=== PATIENT | female | born 1945 | race Hispanic/Latino ===

== ENCOUNTER → 2018-10-24 | Day surgery (SDC) | payer MEDICARE ==
[2018-10-22 11:36] LABS: HEMATOCRIT 40.7 % (34.2-44.1); HEMOGLOBIN 13.4 g/dL (12.0-16.0); LYMPHOCYTES # (AUTO) 1.7 (1.0-3.2); LYMPHOCYTES % 26.1 % (18.0-39.1); MEAN CORPUSCULAR HEMOGLOBIN 29.2 pg (28-32); MEAN CORPUSCULAR HGB CONC 32.9 g/dL (31-35); MEAN CORPUSCULAR VOLUME 88.7 fL (81-99); MONOCYTES # (AUTO) 0.5 (0.2-0.8); MONOCYTES % 8.2 % (4.4-11.3); NEUTROPHILS # (AUTO) 4.2 (2.1-6.9); NEUTROPHILS % 65.2 % (38.7-80.0); PLATELET COUNT 292 x10e3/uL (140-360); RED BLOOD COUNT 4.59 x10e6/uL (3.6-5.1); RED CELL DISTRIBUTION WIDTH 13.1 % (11.7-14.4)
[~2018-10-24] MED LIST: FENTANYL CITRATE/PF 100MCG/2 ML INJ ONE; LISINOPRIL10 MG PO; MIDAZOLAM HCL 2 MG/2 ML VIAL ONE; PROPOFOL IV EMULSION 10 MG/ML 50 ML VIAL ONE; ULTRAM50 MG PO
--- OUTSIDE RECORDS SUMMARY | 2018-10-24 10:21 | XMS REPORT | CCD ---
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 Name Role Phone Rick Lane RP Allergies, Adverse Reactions, Alerts Substance Reaction Status NKDA Active Problem List Condition Effective Dates Status Asthma1 Active Hypertension2 Active 1inhaler prn; took inhaler last weekend 2takes meds Medications Medication Instructions Start Date End Date Status naloxone 0.04 mg, 0.1 mL, Route: IVP, Drug 10/15/2012 10/15/2012 Discontinued form: INJ, Q2MIN, Dosing Weight 62.415, kg, PRN Narcotic Reversal, Start date: 10/15/12 14:49:00, Duration: 8 doses or times, Stop date: Limited # of times flumazenil 0.2 mg, 2 mL, Route: IVP, Drug 10/15/2012 10/15/2012 Discontinued form: INJ, PRN, Dosing Weight 62.415, kg, PRN Benzodiazepine Reversal, Initial dose, Start date: 10/15/12 14:49:00, Duration: 30 day, Stop date: 11/14/12 14:48:00 ketorolac 30 mg, 1 mL, Route: IVP, Drug form: 10/15/2012 10/15/2012 Ordered INJ, ONCE, Dosing Weight 62.415, kg, Start date: 10/15/12 14:49:00, Duration: 1 doses or times, Stop date: 10/15/12 14:49:00 morphine Sulfate 2 mg, 1 mL, Route: IVP, Drug form: 10/15/2012 10/15/2012 Discontinued INJ, Q5Min, Dosing Weight 62.415, kg, PRN Pain Score 4-6, Start date: 10/15/12 14:49:00, Duration: 5 doses or times, Stop date: Limited # of times ondansetron 4 mg, 2 mL, Route: IVP, Drug form: 10/15/2012 10/15/2012 Discontinued INJ, ONCE, Dosing Weight 62.415, kg, PRN Nausea & Vomiting, Start date: 10/15/12 14:49:00 BD Posiflush SF 15 mL, Route: IVP, Drug Form: INJ, 10/15/2012 10/15/2012 Discontinued PRN, PRN Line Flush, Start date: 10/15/12 6:00:00, Duration: 30 day, Stop date: 11/14/12 5:59:00 cefazolin + Sodium 1 gm, Route: IVPB, ONCALL, Start 10/15/2012 10/15/2012 Discontinued Chloride 0.9% IV 100 date: 10/15/12 6:00:00, Duration: 1 mL doses or times, Stop date: 10/15/12 23:59:00 Lactated Ringers 1,000 mL, Rate: 100 ml/hr, Infuse 10/15/2012 10/15/2012 Discontinued Injection IV 1,000 over: 10 hr, Route: IV, Dosing mL Weight 62.415 kg, Total Volume: 1,000, Start date: 10/15/12 6:00:00, Duration: 30 day, Stop date: 11/14/12 5:59:00 Combivent inhalation 2 puff, INHALER, QID, 14 gm, 10/10/2012 Ordered aerosol with adapter Substitution Allowed, Maintenance Lactated Ringers 1,000 mL, Rate: 25 ml/hr, Infuse 10/15/2012 10/15/2012 Discontinued Injection IV 1,000 over: 40 hr, Route: IV, Dosing mL Weight 62.415 kg, Total Volume: 1,000, Start date: 10/15/12 11:30:00, Duration: 30 day, Stop date: 11/14/12 11:29:00 enalapril 10 mg oral 10 mg, 1 tab, PO, Daily, 30 tab, 10/10/2012 Ordered tablet Substitution Allowed, TAB Vital Signs Most recent to oldest [Reference Range]: 1 2 3 Height 157.48 cm (10/10/2012 14:27:00) Systolic Blood Pressure [90-140 mmHg] 150 mmHg *HI* (10/15/2012 16:20:00) 152 mmHg *HI* (10/15/2012 15:40:00) 157 mmHg *HI* (10/15/2012 15:25:00) Diastolic Blood Pressure [60-90 mmHg] 62 mmHg (10/15/2012 16:20:00) 60 mmHg (10/15/2012 15:40:00) 65 mmHg (10/15/2012 15:25:00) Respiratory Rate [14-20 BRMIN] 18 BRMIN (10/15/2012 16:20:00) 16 BRMIN (10/15/2012 15:40:00) 16 BRMIN (10/15/2012 15:25:00) Peripheral Pulse Rate [60-100 bpm] 61 bpm (10/15/2012 16:20:00) 62 bpm (10/15/2012 15:40:00) 61 bpm (10/15/2012 15:25:00) Weight 62.415 kg (10/10/2012 14:27:00) Procedures Procedures Date Related Diagnosis Cataract surgery 02/19/2005 00:00:00
--- OUTSIDE RECORDS SUMMARY | 2018-10-24 10:21 | XMS REPORT | Summary of Care ---
Author Author [facility] Organization [facility] Address Unknown Phone Unavailable Encounter HQ Jared(FIN) [id number] Date(s): 06/16/18 - 06/17/[address] [facility] [address] [place] [address]- Encounter Diagnosis UTI (urinary tract infection) (Discharge Diagnosis) - 06/17/18 Discharge Disposition: Home or Self Care Attending Physician: Allen Balderas MD Vital Signs 1 2 3 Most recent to oldest [Reference Range]: 152.4 cm (06/16/18 9:10 PM) Height 98.2 DegF (06/17/18 12:43 AM) 98.8 DegF (06/16/18 9:10 PM) Temperature Oral [96.4-99.1 DegF] 161/70 mmHg *HI* (06/17/18 12:43 AM) 183/70 mmHg *HI* (06/17/18 12:13 AM) 186/74 mmHg *HI* (06/16/18 11:36 PM) Blood Pressure [90-140/60-90 mmHg] 18 BRMIN (06/17/18 12:43 AM) 18 BRMIN (06/17/18 12:13 AM) 16 BRMIN (06/16/18 11:36 PM) Respiratory Rate [14-20 BRMIN] 66 bpm (06/16/18 9:10 PM) Peripheral Pulse Rate [60-100 bpm] 56.136 kg (06/16/18 9:10 PM) Weight 24.17 m2 (06/16/18 9:10 PM) Body Mass Index Problem List Condition Effective Dates Status Health Status Informant Asthma(Confirmed)1 Active Thickened Active endometrium(Confirme d) Acid Active reflux(Confirmed) Hypercholesterolemia Active (Confirmed) Hypertension(Confirm Active ed)2 Hypertension(Confirm Active ed) 1inhaler prn; took inhaler last weekend 2takes meds Allergies, Adverse Reactions, Alerts No data available for this section Medications acetaminophen 1,000 mg, 2 tab, Route: PO, Drug form: TAB, ONCE, Dosing Weight 56.364, kg, Prio rity: STAT, Start date: 06/16/18 21:06:00 CDT, Stop date: 06/16/18 21:06:00 CDT Notes: Max acetaminophen 4000 mg/day (4 gm/day). (Same as: Tylenol Extra Streng th) Start Date: 06/16/18 Stop Date: 06/17/18 Status: Completed cefTRIAXone 2 gm, Route: IVPB, Drug form: PDR/INJ, ONCE, Dosing Weight 56.136, kg, Priority: STAT, Start date: 06/16/18 23:03:00 CDT, Stop date: 06/16/18 23:03:00 CDT, ABX Indication: Immunocompromised Host Prophylaxis Start Date: 06/16/18 Stop Date: 06/17/18 Status: Completed cefTRIAXone + sterile water 10 mL 1 gm, Route: IM, ONCE, Dosing Weight 56.364, kg, Priority: STAT, Start date: 21:10:00 CDT, Stop date: 06/16/18 21:10:00 CDT, ABX Indication: Urinary Tr act Infection Notes: (Same As: Rocephin).Use with 100 mL NS and infuse over 30 min MEDICA TION WASTE Product Size: 1000 mgProduct Wasted: ___ mg Start Date: 06/16/18 Stop Date: 06/16/18 Status: Discontinued Cipro 500 mg oral tablet 500 mg=1 tab, PO, Q12H, X 10 day, # 20 tab, 0 Refill(s) Start Date: 06/17/18 Stop Date: 06/27/18 Status: Ordered Results Most recent to 1 oldest [Reference Range]: Neutrophils # 7.0 K/CMM [1.5-8.1 K/CMM] (06/16/18 10:39 PM) Lymphocytes # 2.1 K/CMM [1.0-5.5 K/CMM] (06/16/18 10:39 PM) Monocytes # [0.0-0.8 0.7 K/CMM K/CMM] (06/16/18 10:39 PM) eGFR 91 mL/min/1.73m2 1 *NA* (06/16/18 10:39 PM) A/G Ratio [0.7-1.6] 1.1 (06/16/18 10:39 PM) Albumin Lvl [3.5-5.0 3.6 g/dL g/dL] (06/16/18 10:39 PM) Alk Phos [39-136 76 unit/L unit/L] (06/16/18 10:39 PM) ALT [0-65 unit/L] 29 unit/L (06/16/18 10:39 PM) AGAP [10.0-20.0 7.4 mEq/L mEq/L] *LOW* (06/16/18 10:39 PM) AST [0-37 unit/L] 23 unit/L (06/16/18 10:39 PM) B/C Ratio [6-25] 26 *HI* (06/16/18 10:39 PM) Basophils [0.0-1.0 0.3 % %] (06/16/18 10:39 PM) BUN [7-22 mg/dL] 16 mg/dL (06/16/18 10:39 PM) Calcium Lvl 8.8 mg/dL [8.5-10.5 mg/dL] (06/16/18 10:39 PM) Chloride Lvl [95-109 98 mEq/L mEq/L] (06/16/18 10:39 PM) CO2 [24-32 mEq/L] 32 mEq/L (06/16/18 10:39 PM) Creatinine Lvl 0.62 mg/dL [0.50-1.40 mg/dL] (06/16/18 10:39 PM) Globulin [2.7-4.2 3.3 g/dL g/dL] (06/16/18 10:39 PM) Glucose Lvl [70-99 92 mg/dL mg/dL] (06/16/18 10:39 PM) Hct [36.0-48.0 %] 38.7 % (06/16/18 10:39 PM) Hgb [12.0-16.0 g/dL] 12.8 g/dL (06/16/18 10:39 PM) Potassium Lvl 3.4 mEq/L [3.5-5.1 mEq/L] *LOW* (06/16/18 10:39 PM) Lymphocytes 21.0 % [20.0-40.0 %] (06/16/18 10:39 PM) MCH [27.0-31.0 pg] 29.3 pg (06/16/18 10:39 PM) MCHC [32.0-36.0 33.2 g/dL g/dL] (06/16/18 10:39 PM) MCV [80.0-98.0 fL] 88.3 fL (06/16/18 10:39 PM) Monocytes [2.0-12.0 7.1 % %] (06/16/18 10:39 PM) MPV [7.4-10.4 fL] 9.8 fL (06/16/18 10:39 PM) Sodium Lvl [135-145 134 mEq/L mEq/L] *LOW* (06/16/18 10:39 PM) Platelet [133-450 173 K/CMM K/CMM] (06/16/18 10:39 PM) Segs [45.0-75.0 %] 71.6 % (06/16/18 10:39 PM) Total Protein 6.9 g/dL [6.4-8.4 g/dL] (06/16/18 10:39 PM) RBC [4.20-5.40 4.38 M/CMM M/CMM] (06/16/18 10:39 PM) RDW [11.5-14.5 %] 13.6 % (06/16/18 10:39 PM) Bili Total [0.2-1.3 0.2 mg/dL mg/dL] (06/16/18 10:39 PM) UA Bacteria [None Occasional /HPF Seen /HPF] *NA* (06/16/18 10:44 PM) UA Bili [Negative] Negative *NA* (06/16/18 10:44 PM) UA Blood [Negative] Large *ABN* (06/16/18 10:44 PM) UA Color STRAW *NA* (06/16/18 10:44 PM) UA Glucose [Negative Negative mg/dL mg/dL] *NA* (06/16/18 10:44 PM) UA Ketones [Negative Negative mg/dL mg/dL] *NA* (06/16/18 10:44 PM) UA Leuk Est Large [Negative] *ABN* (06/16/18 10:44 PM) UA Nitrite Negative [Negative] (06/16/18 10:44 PM) UA pH [5.0-8.0] 7.0 (06/16/18 10:44 PM) UA Protein [Negative Negative mg/dL mg/dL] (06/16/18 10:44 PM) UA RBC [0-2 /HPF] 16 /HPF *HI* (06/16/18 10:44 PM) UA Spec Grav 1.003 [<=1.030] (06/16/18 10:44 PM) UA Sq Epi None Seen *NA* (06/16/18 10:44 PM) UA Turbidity [Clear] Slight *ABN* (06/16/18 10:44 PM) UA Urobilinogen <=1.0 mg/dL [0.1-1.0 mg/dL] *NA* (06/16/18 10:44 PM) UA WBC [0-5 /HPF] >182 /HPF *HI* (06/16/18 10:44 PM) WBC [3.7-10.4 K/CMM] 9.8 K/CMM (06/16/18 10:39 PM) 1Result Comment: The eGFR is calculated using the CKD-EPI formula. In most young, healthy individuals the eGFR will be >90 mL/min/1.73m2. The eGFR declines with age. An eGFR of 60-89 may be normal in some populations, particularly the elderly, for whom the CKD-EPI formula has not been extensively validated. Use of the eGFR is not recommended in the following populations: Individuals with unstable creatinine concentrations, including patients and those with serious co-morbid conditions. Patients with extremes in muscle mass or diet. The data above are obtained from the National Kid[employer] Disease Education Program ( NKDEP) which additionally recommends that when the eGFR is used in patients with extremes of body mass index for purposes of drug dosing, the eGFR should be mul tiplied by the estimated BMI. Microbiology Reports TEST: Culture: Urine STATUS: Auth (Verified) BODY SITE: SOURCE: Urine, Clean Catch COLLECTED DATE/TIME: 06/16/18 10:44 PM FINAL REPORT >100,000 CFU/mL Escherichia coli ORGANISM:Escherichia coli Immunizations No data available for this section Procedures Procedure Date Related Diagnosis Body Site Status Cataract surgery 02/19/05 Completed Social History Social History Type Response Smoking Status Never smoker; Ready to change: No; Concerns about tobacco use in household: No; Exposure to Tobacco Smoke None; Cigarette Smoking Last 365 Days No; Reg Smoking Cessation Counseling No entered on: 06/16/18 Assessment and Plan No data available for this section
--- OUTSIDE RECORDS SUMMARY | 2018-10-24 10:21 | XMS REPORT | Continuity of Care Document ---
Author Author [facility] Organization [facility] Address Unknown Phone Unavailable Care Team Providers Care Recordak Operator Name Role Phone Matrix Electronic Measuring Information Ideal Me Unavailable Unavailable Problems Problem Status Onset Date Classification Date Reported Comments Source Urinary tract infection, site not specified 06/17/2018 06/19/2018 [facility] URINARY RETENTION PAINFUL Active 06/16/2018 [facility] [address],N95.0,R93.8,POSTMENOPAUSAL BLEEDIN Active 02/08/2017 [facility] MEDIAL MENISCUS TEAR RIGHT-836.0, RIGHT Active 10/09/2012 [facility] Asthma (disorder) Active Problem 06/19/2018 inhaler prn; took inhaler last weekend [facility] Endometrium thickened (finding) Active Problem 06/19/2018 [facility] Gastroesophageal reflux disease (disorder) Active Problem 06/19/2018 [facility] Hypercholesterolemia (disorder) Active Problem 06/19/2018 [facility] Hypertensive disorder, systemic arterial (disorder) Active Problem 06/19/2018 takes meds [facility] Asthma Active Problem 10/17/2012 1inhaler prn; took inhaler last weekend [facility] Hypertension Active Problem 10/17/2012 2takes meds [facility] Medications Medication Details Route Status Patient Instructions Ordering Provider Order Date Source Ciprofloxacin 500 MG Oral Tablet [Cipro] 500 mg=1 tab, PO, Q12H, X 10 day, # 20 tab, 0 Refill(s) Active 06/17/2018 [facility] Ceftriaxone 2 gm, Route: IVPB, Drug form: PDR/INJ, ONCE, Dosing Weight 56.136, kg, Priority: STAT, Start date: 06/16/18 23:03:00 CDT, Stop date: 06/16/18 23:03:00 CDT, ABX Indication: Immunocompromised Host Prop hylaxis No Longer Active 06/17/2018 [facility] Ceftriaxone 1 gm, Route: IM, ONCE, Dosing Weight 56.364, kg, Priority: STAT, Start date: 06/16/18 21:10:00 CDT, Stop date: 06/16/18 21:10:00 CDT, ABX Indication: Urinary Tract InfectionNotes: (Same As: Rocephin). Use with 100 mL NS and infuse over 30 min MEDICATION WASTE Product Size: 1000 mg Product Wasted: ___ mg Inactive 06/17/2018 [place] Acetaminophen 1,000 mg, 2 tab, Route: PO, Drug form: TAB, ONCE, Dosing Weight 56.364, kg, Priority: STAT, Start date: 06/16/18 21:06:00 CDT, Stop date: 06/16/18 21:06:00 CDTNotes: Max acetaminophen 4000 mg/day (4 gm/day). (Same as: Tylenol Extra Strength) No Longer Active 06/17/2018 [facility] Ofirmev 1,000 mg, Route: IV, Drug form: INJ, ONCE, Dosing Weight 56.364, kg, PRN Pain Score 1-3, for > or=50 kg, Start date: 02/16/17 10:14:00 OPTOMETRY ASSISTANT Inactive 02/16/2017 [facility] ePHEDrine (ANES) Route: IV, Drug form: INJ, ONCE, Stop date: 02/16/17 9:51:00 OPTOMETRY ASSISTANT Inactive 02/16/2017 [facility] famotidine (ANES) Route: IV, Drug form: INJ, ONCE, Stop date: 02/16/17 9:50:00 OPTOMETRY ASSISTANT Inactive 02/16/2017 [facility] ondansetron (ANES) Route: IV, Drug form: INJ, ONCE, Stop date: 02/16/17 9:50:00 OPTOMETRY ASSISTANT Inactive 02/16/2017 [facility] dexamethasone (ANES) Route: IV, Drug form: INJ, ONCE, Stop date: 02/16/17 9:50:00 OPTOMETRY ASSISTANT Inactive 02/16/2017 [facility] fentaNYL (ANES) Route: IV, Drug form: INJ, ONCE, Stop date: 02/16/17 9:45:00 OPTOMETRY ASSISTANT Inactive 02/16/2017 [facility] propofol (ANES) Route: IV, Drug form: INJ, ONCE, Stop date: 02/16/17 9:45:00 OPTOMETRY ASSISTANT Inactive 02/16/2017 [facility] lidocaine (ANES) Route: IV, Drug form: INJ, ONCE, Stop date: 02/16/17 9:45:00 OPTOMETRY ASSISTANT Inactive 02/16/2017 [facility] Ondansetron 4 mg, 2 mL, Route: IVP, Drug form: INJ, ONCE, Dosing Weight 56.364, kg, PRN Nausea & Vomiting, Start date: 02/16/17 9:18:00 CSTNotes: (Same as: Zofran) MEDICATION WASTE Product Size: 4 mg Product Wasted: ___ mg Inactive 02/16/2017 [facility] Meperidine 12.5 mg, 0.25 mL, Route: IVP, Drug form: INJ, Q30Min, Dosing Weight 56.364, kg, PRN Other -See Comment, For shivering, Start date: 02/16/17 9:18:00 OPTOMETRY ASSISTANT, Duration: 2 doses or times, Stop date: Limited # of timesNotes: (Same As: Demerol) Inactive 02/16/2017 [facility] Naloxone 0.4 mg, 1 mL, Route: IVP, Drug form: INJ, Q2MIN, Dosing Weight 56.364, kg, PRN Narcotic Reversal, Start date: 02/16/17 9:18:00 OPTOMETRY ASSISTANT, Duration: 8 doses or times, Stop date: Limited # of timesNotes: Same as Narcan Inactive 02/16/2017 [facility] Flumazenil 0.2 mg, 2 mL, Route: IVP, Drug form: INJ, PRN, Dosing Weight 56.364, kg, PRN Benzodiazepine Reversal, Initial dose, Start date: 02/16/17 9:18:00 OPTOMETRY ASSISTANT, Duration: 30 day, Stop date: 03/18/17 9:17:00 OPTOMETRY ASSISTANT Notes: (Same as: Romazicon) Inactive 02/16/2017 [facility] Morphine 2 mg, 0.5 mL, Route: IVP, Drug form: SOLN, Q5Min, Dosing Weight 56.364, kg, PRN Pain Score 4-6, Start date: 02/16/17 9:18:00 OPTOMETRY ASSISTANT, Duration: 5 doses or times, Stop date: Limited # of timesNotes: (Same as:MORPhine Sulfate) Inactive 02/16/2017 [facility] Acetaminophen 1,000 mg, 2 tab, Route: PO, Drug form: TAB, ONCE, Dosing Weight 56.364, kg, PRN Pain Score 1-3, Start date: 02/16/17 9:18:00 CSTNotes: Max acetaminophen 4000 mg/day (4 gm/day). (Same as: Tylenol Extra Strength) Inactive 02/16/2017 [facility] Lactated Ringers Injection IV (ANES) 1000 mL Route: IV, Total Volume: 1,000, Start date: 02/16/17 9:08:00 OPTOMETRY ASSISTANT, Stop date: 02/16/17 10:08:00 OPTOMETRY ASSISTANT Inactive 02/16/2017 [facility] Calcium Chloride 0.0014 MEQ/ML / Potassium Chloride 0.004 MEQ/ML / Sodium Chloride 0.103 MEQ/ML / Sodium Lactate 0.028 MEQ/ML Injectable Solution 1,000 mL, Rate: 25 ml/hr, Infuse over: 40 hr, Route: IV, Dosing Weight 56.364 kg, Total Volume: 1,000, Start date: 02/16/17 7:42:00 OPTOMETRY ASSISTANT, Duration: 30 day, Stop date: 03/18/17 7:41:00 OPTOMETRY ASSISTANT, 1.56, m2 Inactive 02/16/2017 [facility] gabapentin 100 MG Oral Capsule 200 mg=2 cap, PO, Q6H, # 240 cap, 0 Refill(s) Active 02/14/2017 [facility] simvastatin 20 mg oral tablet 20 mg=1 tab, PO, Bedtime, # 30 tab, 1 Refill(s) Active 02/14/2017 [facility] Metoclopramide 5 MG Oral Tablet 5 mg=1 tab, PO, QID-Before Meals, # 120 tab, 0 Refill(s) Active 02/14/2017 [facility] Hydrochlorothiazide 12.5 MG / Lisinopril 20 MG Oral Tablet 1 tab, PO, Daily, # 30 tab, 0 Refill(s) Active 02/14/2017 [facility] naloxone 0.04 mg, 0.1 mL, Route: IVP, Drug form: INJ, Q2MIN, Dosing Weight 62.415, kg, PRN Narcotic Reversal, Start date: 10/15/12 14:49:00, Duration: 8 doses or times, Stop date: Limited # of times IVP No Longer Active [place] 10/15/2012 [facility] flumazenil 0.2 mg, 2 mL, Route: IVP, Drug form: INJ, PRN, Dosing Weight 62.415, kg, PRN Benzodiazepine Reversal, Initial dose, Start date: 10/15/12 14:49:00, Duration: 30 day, Stop date: 11/14/12 14:48:00 IVP No Longer Active [facility] 10/15/2012 [place] ketorolac 30 mg, 1 mL, Route: IVP, Drug form: INJ, ONCE, Dosing Weight 62.415, kg, Start date: 10/15/12 14:49:00, Duration: 1 doses or times, Stop date: 10/15/12 14:49:00 IVP Active [facility] 10/15/2012 [place] morphine Sulfate 2 mg, 1 mL, Route: IVP, Drug form: INJ, Q5Min, Dosing Weight 62.415, kg, PRN Pain Score 4-6, Start date: 10/15/12 14:49:00, Duration: 5 doses or times, Stop date: Limited # of times IVP No Longer Active [facility] 10/15/2012 [place] ondansetron 4 mg, 2 mL, Route: IVP, Drug form: INJ, ONCE, Dosing Weight 62.415, kg, PRN Nausea & Vomiting, Start date: 10/15/12 14:49:00 IVP No Longer Active [facility] 10/15/2012 [place] Lactated Ringers Injection IV 1,000 mL 1,000 mL, Rate: 25 ml/hr, Infuse over: 40 hr, Route: IV, Dosing Weight 62.415 kg, Total Volume: 1,000, Start date: 10/15/12 11:30:00, Duration: 30 day, Stop date: 11/14/12 11:29:00 IV No Longer Active [facility] 10/15/2012 [place] BD Posiflush SF 15 mL, Route: IVP, Drug Form: INJ, PRN, PRN Line Flush, Start date: 10/15/12 6:00:00, Duration: 30 day, Stop date: 11/14/12 5:59:00 IVP No Longer Active [place] 10/15/2012 [place] cefazolin + Sodium Chloride 0.9% IV 100 mL 1 gm, Route: IVPB, ONCALL, Start date: 10/15/12 6:00:00, Duration: 1 doses or times, Stop date: 10/15/12 23:59:00 IVPB No Longer Active [place] 10/15/2012 [place] Lactated Ringers Injection IV 1,000 mL 1,000 mL, Rate: 100 ml/hr, Infuse over: 10 hr, Route: IV, Dosing Weight 62.415 kg, Total Volume: 1,000, Start date: 10/15/12 6:00:00, Duration: 30 day, Stop date: 11/14/12 5:59:00 IV No Longer Active [place] 10/15/2012 [place] Combivent inhalation aerosol with adapter 2 puff, INHALER, QID, 14 gm, Substitution Allowed, Maintenance INHALER Active 10/10/2012 [place] enalapril 10 mg oral tablet 10 mg, 1 tab, PO, Daily, 30 tab, Substitution Allowed, TAB PO Active 10/10/2012 [place] Allergies, Adverse Reactions, Alerts No Known Medication Allergies Immunizations No Data Provided for This Section Results Order Name Results Value Reference Range Date Interpretation Comments Source ERTAPENEM:SUSC:PT:ISOLATE:ORDQN:PRABHU Culture: Urine >100,000 CFU/mL Escherichia coli 06/17/2018 [facility] ERTAPENEM:SUSC:PT:ISOLATE:ORDQN:PRABHU Escherichia coli Escherichia coli 06/17/2018 [facility] URINE AND STOOL UA pH 7.0 5.0 - 8.0 06/17/2018 [facility] URINE AND STOOL UA Protein Negative mg/dL Negative mg/dL 06/17/2018 [facility] URINE AND STOOL UA Glucose Negative mg/dL Negative mg/dL 06/17/2018 [facility] URINE AND STOOL UA Blood Large *ABN* (06/16/18 10:44 PM) Negative 06/17/2018 [facility] URINE AND STOOL UA Leuk Est Large *ABN* (06/16/18 10:44 PM) Negative 06/17/2018 [facility] URINE AND STOOL UA Turbidity Slight *ABN* (06/16/18 10:44 PM) Clear 06/17/2018 [facility] URINE AND STOOL UA Spec Grav 1.003 <=1.030 06/17/2018 [facility] URINE AND STOOL UA Bili Negative *NA* (06/16/18 10:44 PM) Negative 06/17/2018 [facility] URINE AND STOOL UA Nitrite Negative (06/16/18 10:44 PM) Negative 06/17/2018 [facility] URINE AND STOOL UA Ketones Negative mg/dL Negative mg/dL 06/17/2018 [facility] URINE AND STOOL UA RBC 16 0 - 2 06/17/2018 [facility] URINE AND STOOL UA Bacteria Occasional /HPF None Seen /HPF 06/17/2018 [facility] URINE AND STOOL UA Sq Epi None Seen 06/17/2018 [facility] URINE AND STOOL UA WBC >182 0 - 5 06/17/2018 [facility] URINE AND STOOL UA Color STRAW 06/17/2018 [facility] URINE AND STOOL UA Urobilinogen <=1.0 mg/dL 0.1 - 1.0 06/17/2018 [facility] CHEM PANEL B/C Ratio 26 6 - 25 06/17/2018 [facility] CHEM PANEL Globulin 3.3 2.7 - 4.2 06/17/2018 [facility] CHEM PANEL A/G Ratio 1.1 0.7 - 1.6 06/17/2018 [facility] CHEM PANEL AGAP 7.4 10.0 - 20.0 06/17/2018 [facility] CHEM PANEL Albumin Lvl 3.6 3.5 - 5.0 06/17/2018 [facility] CHEM PANEL ALT 29 0 - 65 06/17/2018 [facility] CHEM PANEL Alk Phos 76 39 - 136 06/17/2018 [facility] CHEM PANEL AST 23 0 - 37 06/17/2018 [facility] CHEM PANEL Bili Total 0.2 0.2 - 1.3 06/17/2018 [facility] CHEM PANEL Calcium Lvl 8.8 8.5 - 10.5 06/17/2018 [facility] CHEM PANEL Total Protein 6.9 6.4 - 8.4 06/17/2018 [facility] CHEM PANEL eGFR 91 06/17/2018 Result Comment: The eGFR is calculated using the [...] from the National Kidney Disease Education Program (NKDEP) which additionally recommends that when the eGFR is used in patients with extremes of body mass index for purposes of drug dosing, the eGFR should be multiplied by the estimated BMI. [facility] CHEM PANEL Sodium Lvl 134 135 - 145 06/17/2018 [facility] CHEM PANEL Potassium Lvl 3.4 3.5 - 5.1 06/17/2018 [facility] CHEM PANEL Chloride Lvl 98 95 - 109 06/17/2018 [facility] CHEM PANEL Glucose Lvl 92 70 - 99 06/17/2018 [facility] CHEM PANEL CO2 32 24 - 32 06/17/2018 [facility] CHEM PANEL BUN 16 7 - 22 06/17/2018 [facility] CHEM PANEL Creatinine Lvl 0.62 0.50 - 1.40 06/17/2018 [facility] HEMATOLOGY Segs 71.6 45.0 - 75.0 06/17/2018 [facility] Monocytes 7.1 2.0 - 12.0 06/17/2018 [facility] Lymphocytes 21.0 20.0 - 40.0 06/17/2018 [facility] Monocytes # 0.7 0.0 - 0.8 06/17/2018 [facility] Lymphocytes # 2.1 1.0 - 5.5 06/17/2018 [facility] Neutrophils # 7.0 1.5 - 8.1 06/17/2018 [facility] Basophils 0.3 0.0 - 1.0 06/17/2018 [facility] MCH 29.3 27.0 - 31.0 06/17/2018 [facility] MCHC 33.2 32.0 - 36.0 06/17/2018 [facility] Platelet 173 133 - 450 06/17/2018 [facility] RDW 13.6 11.5 - 14.5 06/17/2018 [facility] MPV 9.8 7.4 - 10.4 06/17/2018 [facility] MCV 88.3 80.0 - 98.0 06/17/2018 [facility] Hct 38.7 36.0 - 48.0 06/17/2018 [facility] Hgb 12.8 12.0 - 16.0 06/17/2018 [facility] RBC 4.38 4.20 - 5.40 06/17/2018 [facility] WBC 9.8 3.7 - 10.4 06/17/2018 [facility] CHEM PANEL Glucose Lvl 79 70 - 99 02/14/2017 [facility] ELECTROLYTES Sodium Lvl 143 135 - 145 02/14/2017 [facility] ELECTROLYTES Potassium Lvl 3.8 3.5 - 5.1 02/14/2017 [facility] HEMATOLOGY Hct 42.1 36.0 - 48.0 02/14/2017 [facility] HEMATOLOGY Hgb 14.3 12.0 - 16.0 02/14/2017 [facility] Pathology Reports No Data Provided for This Section Diagnostic Reports Report Value Date Source Renal Stone CT Study: Renal Stone CT Clinical Indication: Abdominal pain, acute - renal stone protocol; urinary retention Comparison: None Technique: Axial images with sagittal and coronal reconstructions were obtained without contrast. CT imaging performed at this location utilizes radiation dose optimization techniques which include one or more of the following: -Automated exposure control -Adjustment of the mA and/or kV according to patient size -Use of iterative reconstruction technique CT Radiation Dose DLP 442.12 mGy-cm FINDINGS: The no urinary tract calculus, hydronephrosis or perinephric stranding is noted. The lung bases are clear. The unenhanced liver, spleen, gallbladder and common duct are normal. The adrenals and pancreas are normal. There is a tiny fat-containing umbilical hernia. No intestinal lesion or mesenteric inflammatory change is noted. Small volume urinary bladder demonstrates mild mural thickening. 4.4 cm left ovarian cyst is noted. The uterus, right adnexa and small volume bladder otherwise grossly unremarkable. There is minor atherosclerosis and moderate spondylosis. No adenopathy or ascites is seen. IMPRESSION: 1. No urinary tract calculus. 2. Small volume urinary bladder with possible mild mural thickening. 3. 4.4 cm left ovarian cyst. 4. Minor atherosclerosis and moderate spondylosis. SL: CHARLETTE-PC 06/16/2018 [facility] Consultation Notes No Data Provided for This Section Discharge Summaries No Data Provided for This Section History and Physicals No Data Provided for This Section Vital Signs Vital Sign Value Date Comments Source Systolic (mm Hg) 161 06/17/2018 [facility] Diastolic (mm Hg) 70 06/17/2018 [facility] Respitory Rate 18 06/17/2018 [facility] Temperature Oral (F) 98.2 F 06/17/2018 [facility] Respitory Rate 18 06/17/2018 [facility] Systolic (mm Hg) 183 06/17/2018 [facility] Diastolic (mm Hg) 70 06/17/2018 [facility] Respitory Rate 16 06/17/2018 [facility] Systolic (mm Hg) 186 06/17/2018 [facility] Diastolic (mm Hg) 74 06/17/2018 [facility] Weight 56.136 06/17/2018 [facility] Height 152.4 cm 06/17/2018 [facility] BMI Calculated 24.17 06/17/2018 [facility] Heart Rate 66 06/17/2018 [facility] Temperature Oral (F) 98.8 F 06/17/2018 [facility] Systolic (mm Hg) 121 02/16/2017 [facility] Diastolic (mm Hg) 54 02/16/2017 [facility] Respitory Rate 15 02/16/2017 [facility] Heart Rate 75 02/16/2017 [facility] Systolic (mm Hg) 118 02/16/2017 [facility] Diastolic (mm Hg) 44 02/16/2017 [facility] Respitory Rate 16 02/16/2017 [facility] Systolic (mm Hg) 123 02/16/2017 [facility] Diastolic (mm Hg) 48 02/16/2017 [facility] Respitory Rate 10 02/16/2017 [facility] Heart Rate 68 02/16/2017 [facility] Weight 56.364 02/14/2017 [facility] Height 152.4 cm 02/14/2017 [facility] BMI Calculated 24.27 02/14/2017 [facility] Heart Rate 61 10/15/2012 [place] Respitory Rate 18 10/15/2012 [place] Systolic (mm Hg) 150 10/15/2012 [place] Diastolic (mm Hg) 62 10/15/2012 [place] Heart Rate 62 10/15/2012 [place] Diastolic (mm Hg) 60 10/15/2012 [place] Systolic (mm Hg) 152 10/15/2012 [place] Respitory Rate 16 10/15/2012 [place] Respitory Rate 16 10/15/2012 [place] Systolic (mm Hg) 157 10/15/2012 [place] Diastolic (mm Hg) 65 10/15/2012 [place] Heart Rate 61 10/15/2012 [place] Height 157.48 cm 10/10/2012 [place] Weight 62.415 10/10/2012 [place] Encounters Location Location Details Encounter Type Encounter Number Reason For Visit Attending Provider ADM Date DC Date Status Source [place] [id number] SERAFIN FLEMING 10/15/2012 10/15/2012 Discharged [place] [facility] Day Surgery [id number] Charlie Bang 02/16/2017 02/16/2017 [facility] Emergency [id number] Allen Balderas 06/17/2018 06/17/2018 [facility] Procedures Procedure Code Date Perfomer Comments Source Cataract surgery [id number] 02/19/2005 [facility] Cataract surgery [id number] 02/19/2005 [facility] Assessment and Plan No Data Provided for This Section Plan of Care No Data Provided for This Section Social History Social History Date Source Social History TypeResponse Smoking Status Never smoker; Ready to change: No; Concerns about tobacco use in household: No; Exposure to Tobacco Smoke None; Cigarette Smoking Last 365 Days No; Reg Smoking Cessation Counseling No entered on: 06/16/18 06/17/2018 [facility] Social History TypeResponse Smoking Status Never smoker; Ready to change: No; Concerns about tobacco use in household: No; Exposure to Tobacco Smoke None; Cigarette Smoking Last 365 Days No; Reg Smoking Cessation Counseling No 02/14/2017 [facility] Family History No Data Provided for This Section Advance Directives No Data Provided for This Section Functional Status No Data Provided for This Section
--- OUTSIDE RECORDS SUMMARY | 2018-10-24 10:21 | XMS REPORT | Summary of Care ---
Author Author [facility] Organization [facility] Address Unknown Phone Unavailable Encounter MEL Coleman(VENKAT) [id number] Date(s): 02/16/17 - 02/16/[address] [address]- Discharge Disposition: Home or Self Care Attending Physician: Charlie Bang MD Referring Physician: Charlie Bang MD Vital Signs 1 2 3 Most recent to oldest [Reference Range]: 152.4 cm (02/14/17 8:51 AM) Height 121/54 mmHg (02/16/17 11:00 AM) 118/44 mmHg (02/16/17 10:52 AM) 123/48 mmHg (02/16/17 10:37 AM) Blood Pressure [90-140/60-90 mmHg] 15 BRMIN (02/16/17 11:00 AM) 16 BRMIN (02/16/17 10:52 AM) 10 BRMIN *LOW* (02/16/17 10:37 AM) Respiratory Rate [14-20 BRMIN] 75 bpm (02/16/17 11:00 AM) 68 bpm (02/16/17 8:08 AM) Peripheral Pulse Rate [60-100 bpm] 56.364 kg (02/14/17 8:51 AM) Weight 24.27 m2 (02/14/17 8:51 AM) Body Mass Index Problem List Condition Effective Dates Status Health Status Informant Thickened Active endometrium(Confirme d) Acid Active reflux(Confirmed) Hypercholesterolemia Active (Confirmed) Hypertension(Confirm Active ed) Allergies, Adverse Reactions, Alerts Substance Reaction Severity Status NKDA Active Medications ANES acetaminophen 1,000 mg, 2 tab, Route: PO, Drug form: TAB, ONCE, Dosing Weight 56.364, kg, PRN Pain Score 1-3, Start date: 02/16/17 9:18:00 DIVIDER OPERATOR Notes: Max acetaminophen 4000 mg/day (4 gm/day). (Same as: Tylenol Extra Streng th) Start Date: 02/16/17 Stop Date: 02/16/17 Status: Discontinued ANES flumazenil 0.2 mg, 2 mL, Route: IVP, Drug form: INJ, PRN, Dosing Weight 56.364, kg, PRN Son zodiazepine Reversal, Initial dose, Start date: 02/16/17 9:18:00 DIVIDER OPERATOR, Duration: 30 day, Stop date: 03/18/17 9:17:00 DIVIDER OPERATOR Notes: (Same as: Romazicon) Start Date: 02/16/17 Stop Date: 02/16/17 Status: Discontinued ANES meperidine 12.5 mg, 0.25 mL, Route: IVP, Drug form: INJ, Q30Min, Dosing Weight 56.364, kg, PRN Other -See Comment, For shivering, Start date: 02/16/17 9:18:00 DIVIDER OPERATOR, Duratio n: 2 doses or times, Stop date: Limited # of times Notes: (Same As: Demerol) Start Date: 02/16/17 Stop Date: 02/16/17 Status: Discontinued ANES morphine Sulfate 2 mg, 0.5 mL, Route: IVP, Drug form: SOLN, Q5Min, Dosing Weight 56.364, kg, PRN Pain Score 4-6, Start date: 02/16/17 9:18:00 DIVIDER OPERATOR, Duration: 5 doses or times, St op date: Limited # of times Notes: (Same as:MORPhine Sulfate) Start Date: 02/16/17 Stop Date: 02/16/17 Status: Discontinued ANES morphine Sulfate 4 mg, 1 mL, Route: IVP, Drug form: SOLN, Q5Min, Dosing Weight 56.364, kg, PRN Pa in Score 7-10, Start date: 02/16/17 9:18:00 DIVIDER OPERATOR, Duration: 3 doses or times, Sto p date: Limited # of times Notes: (Same as:MORPhine Sulfate) Start Date: 02/16/17 Stop Date: 02/16/17 Status: Discontinued ANES naloxone 0.4 mg, 1 mL, Route: IVP, Drug form: INJ, Q2MIN, Dosing Weight 56.364, kg, PRN N arcotic Reversal, Start date: 02/16/17 9:18:00 DIVIDER OPERATOR, Duration: 8 doses or times, Stop date: Limited # of times Notes: Same as Narcan Start Date: 02/16/17 Stop Date: 02/16/17 Status: Discontinued ANES ondansetron 4 mg, 2 mL, Route: IVP, Drug form: INJ, ONCE, Dosing Weight 56.364, kg, PRN Naus ea & Vomiting, Start date: 02/16/17 9:18:00 DIVIDER OPERATOR Notes: (Same as: Zofran) MEDICATION WASTE Product Size: 4 mgProduct Was dylan: ___ mg Start Date: 02/16/17 Stop Date: 02/16/17 Status: Completed dexamethasone (ANES) Route: IV, Drug form: INJ, ONCE, Stop date: 02/16/17 9:50:00 DIVIDER OPERATOR Start Date: 02/16/17 Stop Date: 02/16/17 Status: Completed ePHEDrine (ANES) Route: IV, Drug form: INJ, ONCE, Stop date: 02/16/17 9:51:00 DIVIDER OPERATOR Start Date: 02/16/17 Stop Date: 02/16/17 Status: Completed famotidine (ANES) Route: IV, Drug form: INJ, ONCE, Stop date: 02/16/17 9:50:00 DIVIDER OPERATOR Start Date: 02/16/17 Stop Date: 02/16/17 Status: Completed fentaNYL (ANES) Route: IV, Drug form: INJ, ONCE, Stop date: 02/16/17 9:45:00 DIVIDER OPERATOR Start Date: 02/16/17 Stop Date: 02/16/17 Status: Completed gabapentin 100 mg oral capsule 200 mg=2 cap, PO, Q6H, # 240 cap, 0 Refill(s) Start Date: 02/14/17 Status: Ordered hydrochlorothiazide-lisinopril 12.5 mg-20 mg oral tablet 1 tab, PO, Daily, # 30 tab, 0 Refill(s) Start Date: 02/14/17 Status: Ordered Lactated Ringers Injection IV (ANES) 1000 mL Route: IV, Total Volume: 1,000, Start date: 02/16/17 9:08:00 DIVIDER OPERATOR, Stop date: 10:08:00 DIVIDER OPERATOR Start Date: 02/16/17 Stop Date: 02/16/17 Status: Completed Lactated Ringers Injection IV 1,000 mL 1,000 mL, Rate: 25 ml/hr, Infuse over: 40 hr, Route: IV, Dosing Weight 56.364 kg , Total Volume: 1,000, Start date: 02/16/17 7:42:00 DIVIDER OPERATOR, Duration: 30 day, Stop date: 03/18/17 7:41:00 DIVIDER OPERATOR, 1.56, m2 Start Date: 02/16/17 Stop Date: 02/16/17 Status: Discontinued lidocaine (ANES) Route: IV, Drug form: INJ, ONCE, Stop date: 02/16/17 9:45:00 DIVIDER OPERATOR Start Date: 02/16/17 Stop Date: 02/16/17 Status: Completed metoclopramide 5 mg oral tablet 5 mg=1 tab, PO, QID-Before Meals, # 120 tab, 0 Refill(s) Start Date: 02/14/17 Stop Date: 03/16/17 Status: Ordered Ofirmev 1,000 mg, Route: IV, Drug form: INJ, ONCE, Dosing Weight 56.364, kg, PRN Pain Sc ore 1-3, for > or=50 kg, Start date: 02/16/17 10:14:00 DIVIDER OPERATOR Start Date: 02/16/17 Stop Date: 02/16/17 Status: Completed ondansetron (ANES) Route: IV, Drug form: INJ, ONCE, Stop date: 02/16/17 9:50:00 DIVIDER OPERATOR Start Date: 02/16/17 Stop Date: 02/16/17 Status: Completed propofol (ANES) Route: IV, Drug form: INJ, ONCE, Stop date: 02/16/17 9:45:00 DIVIDER OPERATOR Start Date: 02/16/17 Stop Date: 02/16/17 Status: Completed simvastatin 20 mg oral tablet 20 mg=1 tab, PO, Bedtime, # 30 tab, 1 Refill(s) Start Date: 02/14/17 Status: Ordered Results ELECTROLYTES Most recent to 1 oldest [Reference Range]: Sodium Lvl [135-145 143 mEq/L mEq/L] (02/14/17 9:21 AM) Potassium Lvl 3.8 mEq/L [3.5-5.1 mEq/L] (02/14/17 9:21 AM) CHEM PANEL Most recent to 1 oldest [Reference Range]: Glucose Lvl [70-99 79 mg/dL mg/dL] (02/14/17 9:21 AM) HEMATOLOGY Most recent to 1 oldest [Reference Range]: Hgb [12.0-16.0 g/dL] 14.3 g/dL (02/14/17 9:21 AM) Hct [36.0-48.0 %] 42.1 % (02/14/17 9:21 AM) Immunizations No data available for this section Procedures No data available for this section Social History Social History Type Response Smoking Status Never smoker; Ready to change: No; Concerns about tobacco use in household: No; Exposure to Tobacco Smoke None; Cigarette Smoking Last 365 Days No; Reg Smoking Cessation Counseling No Assessment and Plan No data available for this section
--- OUTSIDE RECORDS SUMMARY | 2018-10-24 10:21 | XMS REPORT ---
[facility] Address Unknown Phone Unavailable Care Team Providers Care Infertility Nurse Name Role Phone Unavailable Unavailable Payers Payer Name Policy Type Policy Number Effective Date Expiration Date Problems This patient has no known problems. Allergies, Adverse Reactions, Alerts Allergy Name Allergy Type Status Severity Reaction(s) Onset Date Inactive Date Treating Clinician Comments No Known Allergies DA Active U 2015-11-21 00:00:00 Medications This patient has no known medications. Encounters Start Date/Time End Date/Time Encounter Type Admission Type Attending Clinicians Care Facility Care Department Encounter ID 2018-06-16 20:49:00 2018-06-16 20:49:00 Emergency E [id number]
[2018-10-24 13:00] VITALS: BP 128/55
== END | disposition home or self-care (01) ==
LOC: OR 10:19
PROVIDERS: ATTEND Internal Medicine
DX: K29.50 Unspecified chronic gastritis without bleeding (principal); K21.9 Gastro-esophageal reflux disease without esophagitis; K64.0 First degree hemorrhoids; R63.4 Abnormal weight loss; I10 Essential (primary) hypertension; M54.9 Dorsalgia, unspecified; J45.909 Unspecified asthma, uncomplicated; M19.90 Unspecified osteoarthritis, unspecified site; Z88.8 Allergy status to other drugs, medicaments and biological substances; Z01.812 Encounter for preprocedural laboratory examination
CPT/HCPCS: 36415; 43239; 45378; 85025; 93005; J2250; J2704; J3010